=== PATIENT | female | born 1950 | race Caucasian/White ===

== ENCOUNTER → 2016-03-26 | Outpatient (CLI) | payer OTHER ==
--- NOTE | 2016-03-26 11:32 | MA ---
Screening Digital Mammogram With Tomosynthesis Clinical Indications: Routine screening. Technique: Standard digital cephalocaudal and tomosynthesis mediolateral oblique projections are obt ained. An additional digital cc view is performed of the right breast. The digital images were proces sed by the [employer] computer aided detection system. Comparison: July 2013, June 2012 and June 2011 Breast density: B; There are scattered fibroglandular densities. Findings: CAD was reviewed. Identified only on tomosynthesis (47/83 in the upper slightly inner left breast is a small nodule with marginal architectural distortion. The remainder of the left and right breast are stable and negative Impression: Small spiculated nodule upper left breast. Recommendation: Ultrasound for further evaluation. BI-RADS 0: Recommend additional imaging upper left breast. [facility] will send a result letter to the patient. Negative mammography should not preclude additional workup of a clinically suspicious finding. The patient's information is entered into a reminder system with a target due date for her next mammo gram.
== END ==
LOC: FIMAGING 10:20
DX: Z12.31 Encounter for screening mammogram for malignant neoplasm of breast (principal)
CPT/HCPCS: G0202

== ENCOUNTER → 2016-04-02 | Outpatient (CLI) | payer OTHER ==
--- NOTE | 2016-04-02 14:49 | US ---
Left Breast Ultrasound History: Nodule upper left breast Comparison: Screening mammogram March 26, 2016 Findings: There are scattered small simple cysts in the upper breast, the largest measures approximat martha 5 mm and is 7 cm from the nipple . Impression: The mammographic density is consistent with a small, probably benign simple cyst. Recommendation: Six-month follow-up left breast diagnostic mammogram (with tomosynthesis) to ensure s tability of what likely correlates with a simple cyst on sonography. BI-RADS 3. Probably benign. Results and recommendation communicated to the patient at the time of the examination.
== END ==
LOC: FIMAGING 14:13
PROVIDERS: ATTEND Internal Medicine
DX: R92.2 Inconclusive mammogram (principal)

== ENCOUNTER → 2016-05-12 | Outpatient (CLI) | payer OTHER | LOC: FIMAGING 10:33 | PROVIDERS: ATTEND Internal Medicine | DX: Z13.820 Encounter for screening for osteoporosis (principal); Z78.0 Asymptomatic menopausal state; Z82.62 Family history of osteoporosis ==

== ENCOUNTER → 2016-10-19 | Outpatient (CLI) | payer OTHER | LOC: FIMAGING 09:30 | PROVIDERS: ATTEND Internal Medicine | DX: Z13.29 Encounter for screening for other suspected endocrine disorder (principal); N60.02 Solitary cyst of left breast | CPT/HCPCS: G0206 ==

== ENCOUNTER 2017-01-25 11:09 | Inpatient (IN) | payer OTHER ==
--- NOTE | 2017-01-25 11:28 | CPEKG ---
Heart Rate: 93 RR Interval: 645 P-R Interval: 144 QRSD Interval: 88 QT Interval: 344 QTC Interval: 428 P Corning: 28 QRS Corning: 64 T Wave Corning: 24 EKG Severity - NORMAL ECG - EKG Impression: SINUS RHYTHM Electronically Signed By: Jodi Mistry 25-Jan-2017 15:33:27
[2017-01-25] MEDS ORDERED: ASPIRIN 81 MG CHEWABLE TAB PO ONE (11:29)
[2017-01-25 11:38] LABS: % IMMATURE GRANULYOCYTES 0.2 % (0.0-1.1); ABSOLUTE IMMATURE GRANULOCYTES 0.02 10^3/uL (0.00-0.10); ADD DIFF? NO; ADD MORPH? NO; ADD SCAN? NO; ATYPICAL LYMPHOCYTE FLAG 0 (0-99); FRAGMENT RBC FLAG 0 (0-99); HEMATOCRIT 43.9 % (38.0-47.0); HEMOGLOBIN 14.9 g/dL (12.6-16.3); LEFT SHIFT FLG 0 (0-99); LIPEMIA HEMOLYSIS FLAG 90 (0-99); MEAN CELL HEMOGLOBIN 31.4 pg (27.9-34.1); MEAN CELL HEMOGLOBIN CONCENTR. 33.9 g/dL (32.4-36.7); MEAN CELL VOLUME 92.6 fL (81.5-99.8); MEAN PLATELET VOLUME 9.1 fL (8.7-11.7); PLATELET CLUMPS FLAG 0 (0-99); PLATELET COUNT 201 10^3/uL (150-400); RED BLOOD CELL COUNT 4.74 10^6/uL (4.18-5.33); RED CELL DISTRIBUTION WIDTH 14.3 % (11.5-15.2)
[2017-01-25 11:49] LABS: INR 0.96 (0.83-1.16); PROTIME(PATIENT) 12.7 SEC (12.0-15.0)
[2017-01-25 11:53] LABS: ANION GAP 12 mEq/L (8-16); CALCIUM 9.6 mg/dL (8.5-10.4); CARBON DIOXIDE 27 mEq/l (22-31); CHLORIDE 100 mEq/L (97-110); CREATININE 0.8 mg/dL (0.6-1.0); GLOMERULAR FILTRATION RATE > 60; GLUCOSE 92 mg/dL (70-100); POTASSIUM 3.8 mEq/L (3.5-5.2); SODIUM 139 mEq/L (134-144)
[2017-01-25 11:57] LABS: APTT 20.5 SEC (23.0-38.0)
[2017-01-25 12:04] LABS: CREATINE KINASE-MB FRACTION 0.41 ng/mL (0.00-3.19); TROPONIN I < 0.012 ng/mL (0.000-0.034)
[2017-01-25] MEDS ORDERED: IOPAMIDOL (ISOVUE 370) 100 ML BTL IV ONE (14:04)
--- NOTE | 2017-01-25 14:11 | EDPHY ---
H & P Time Seen by Provider: 01/25/17 11:29 HPI/ROS: HPI Chest pain, shortness of breath. 66-year-old female by private vehicle from her primary care physician's office at [facility]. She complains of chest pain with associated shortness of breath since yesterday. Pain described as left-sided lower to mid chest pain, worse with taking a deep breath and yawning. Describes it as sharp and aching. Reports it has been constant at least a low level since yesterday. No prior history of coronary artery disease. ROS: Constitutional: No fever, no chills. No weakness. Eyes: No discharge. No changes in vision. ENT: No sore throat. No nasal congestion or rhinorrhea. Respiratory: No cough. As above. Cardiac: As above, no palpitations. Gastrointestinal: No abdominal pain, no vomiting, no diarrhea. Genitourinary: No hematuria. No dysuria or increased frequency with urination. Musculoskeletal: No back pain. No neck pain. No myalgias or arthralgias. Skin: No rashes. Neurological: No headache. No focal weakness or altered sensation. Past medical history: Hip replacement, laminectomy, hypertension. Social history: Nonsmoker. No alcohol. Here by herself. Physical Exam: General Appearance: Alert, no distress. This patient is responding to questions appropriately and in full sentences. This patient appears well- hydrated and well-nourished. Eyes: Pupils equal and round no pallor or injection. No lid edema, erythema or injection. Respiratory: There are no retractions, lungs are clear to auscultation with good air movement bilaterally. Cardiovascular: Regular rate and rhythm. No murmur. Chest wall is nontender to AP and lateral palpation. Gastrointestinal: Abdomen is soft and nontender, no masses, bowel sounds normal. No focal tenderness at McBurney's point. No Mccoy sign. Neurological: Motor sensory function is grossly intact. Cranial nerves are normal. Gait is normal. Skin: Warm and dry, no rashes. Musculoskeletal: Neck is supple and nontender. Extremities are symmetrical. All joints range without pain or impingement. Psychiatric: No agitation. No depression. Database: EKG: EKG time is 11:26 a.m.; EKG shows a narrow complex normal sinus rhythm with a ventricular rate of 93. The NE, QRS, QT intervals are within normal limits. There are no ST-T wave changes indicative of ischemic or injury pattern. No evidence of right heart strain. Interpreted by me. Imaging: Chest x-ray AP portable; the cardiac mediastinal silhouette is unremarkable. Left base atelectasis versus early pneumonia. No pneumothorax. No other acute cardiopulmonary disease process noted. Interpreted by me. CT angiogram of the chest: Significant for left lower lobe pulmonary embolism. There is a small associated pleural effusion and a small associated consolidation, probable infarction. Results discussed with staff radiologist. Procedures: Emergency department course: IV placed. She was placed on a surveillance system monitor. Vital signs reviewed. She was given 324 mg of chewed aspirin. 2:10 p.m., patient re-evaluated. Resting comfortably at this time. Results of her chest x-ray and blood test discussed. Possibility of pneumonia discussed as well as PE. She consents to CT angiogram of the chest. 2:30 p.m., re-evaluated patient. Discussed diagnosis of pulmonary embolism as seen on CT angiogram of her chest. She will be started on Lovenox in the emergency department for this. I discussed plan for admission. All of her questions were answered. 2:45 p.m., spoke with hospitalist, Dr. Puneet Renee. He accepts the patient for admission. He agrees with above management. Patient admitted to the hospitalist service in stable condition. Differential Diagnosis: The differential diagnosis on this patient includes but is not limited to pneumonia, pulmonary embolism. Acute coronary syndrome, pneumothorax, pericarditis, myocarditis unlikely. This represents a partial list of diagnoses considered. These considerations are based on history, physical exam , past history, reassessment and diagnostic testing. Smoking Status: Never smoked Constitutional: Initial Vital Signs Temperature (C) 36.5 C 01/25/17 11:14 Heart Rate 99 01/25/17 11:14 Respiratory Rate 16 01/25/17 11:14 Blood Pressure 129/87 H 01/25/17 11:14 O2 Sat (%) 95 01/25/17 11:14 O2 Delivery Mode Room Air Allergies/Adverse Reactions: No Known Allergies Allergy (Unverified 07/17/11 16:03) Home Medications: Medication Instructions Recorded Cholecalciferol Vit D3 [Vitamin D3 5,000 units PO DAILY 01/25/17 (*)] Lisinopril [Lisinopril] 10 mg PO DAILY 01/25/17 Multivitamins [Multivitamin (*)] 1 each PO DAILY 01/25/17 [place]-3 Fatty Acids/Fish Oil 1 each PO DAILY 01/25/17 [[place] 3 Fish Oil Softgel] Triamterene/Hydrochlorothiazid 1 each PO DAILY 01/25/17 [Triamterene-Hctz 75-50 mg Tab] Medical Decision Making - Data Points Laboratory Results: Laboratory Results 01/25/17 11:35 01/25/17 11:35 Medications Given: Acetaminophen (Tylenol) 650 mg PO Q4HRS PRN PRN Reason: Pain, Mild/Fever, Can Take PO Stop: 07/24/17 15:37 Last Admin: 01/26/17 08:01 Dose: 650 mg Cholecalciferol (Vitamin D) 5,000 units PO DAILY [facility] Stop: 07/25/17 08:59 Last Admin: 01/26/17 07:55 Dose: 2,000 units Enoxaparin Sodium (Lovenox) 100 mg SC BID@0400,1600 [facility] Stop: 07/25/17 03:59 Last Admin: 01/26/17 04:30 Dose: 100 mg Lisinopril (Zestril) 10 mg PO DAILY [facility] Stop: 07/25/17 08:59 Last Admin: 01/26/17 07:57 Dose: 10 mg Oxycodone HCl (Oxycodone Ir) 5 - 10 mg PO Q3HRS PRN PRN Reason: Pain, Severe Able to Take PO Stop: 02/04/17 15:37 Last Admin: 01/26/17 04:25 Dose: 5 mg Triamterene/HCTZ (Maxzide 75-50 Mg Tab) 1 each PO DAILY [facility] Stop: 07/25/17 08:59 Last Admin: 01/26/17 07:57 Dose: 1 each Discontinued Medications Aspirin (Aspirin) 324 mg PO EDNOW ONE Stop: 01/25/17 11:30 Last Admin: 01/25/17 11:40 Dose: 324 mg Enoxaparin Sodium (Lovenox) 100 mg SC EDNOW ONE Stop: 01/25/17 15:04 Last Admin: 01/25/17 15:47 Dose: 100 mg Departure - Departure Disposition: [facility] Acute Clinical Impression: Chest pain, Dyspnea, Pulmonary embolism
[2017-01-25] MEDS ORDERED: ENOXAPARIN 100 MG/ML SYR SC ONE (15:03)
[2017-01-25] MEDS ORDERED: ONDANSETRON DISINTEGRATING 4 MG TAB PO PRN (15:38)
[2017-01-25] MEDS ORDERED: ONDANSETRON 4 MG/2 ML VIAL IVP PRN (15:38)
--- NOTE | 2017-01-25 16:35 | GHP ---
[f rep st] HISTORY AND PHYSICAL DATE OF ADMISSION: 01/25/2017 CHIEF COMPLAINT: Chest pain and shortness of breath. HISTORY OF PRESENT ILLNESS: This is a 66-year-old female, who woke up yesterday feeling as though tasneem marquez had indigestion. She describes this as pain that starts in her substernal, radiates to the left si de. It is also very sharp, pleuritic in the left lower part of her chest, the lower left breast. Tasneem marquez has no family history of clots. She has never had a blood clot herself. She has had no recent corrie geries. She did travel to [place] over [facility] by car, about [address] She go t back on Wednesday. She tells me she is up-to-date on her colon cancer and breast cancer screening. S he was seen by her nurse practitioner in her PCP's office today, and thus sent into the Emergency Dep artment from there. PAST MEDICAL/SURGICAL HISTORY: 1. Hyperlipidemia. 2. Hypertension. 3. Appendectomy. 4. Myomectomy. 5. Hip replacement. MEDICATIONS: Please see medication reconciliation. ALLERGIES: No known drug allergies. FAMILY HISTORY: No clots. SOCIAL HISTORY: She occasionally drinks. She quit smoking 41 years ago. Today is her 41st anniversary. REVIEW OF SYSTEMS: A 10-point review of systems is conducted and is negative, except per HPI. PHYSICAL EXAM: VITAL SIGNS: Blood pressure 145/77, heart rate 98, respiration rate 22, saturating 9 2% on room air, temperature 36.5. GENERAL: The patient is a very pleasant female who resting comfor tably, in no acute distress. HEENT: Shows to be normocephalic, atraumatic. CARDIOVASCULAR: Regula r rate and rhythm. No murmurs, rubs or gallops. 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 ABDOMEN: Nontender, nondistended. SKIN: Rash. : No Finnye. NEUROLOGIC: Shows her to b e alert and oriented x3. She is moving all extremities. PSYCHIATRIC: Normal mood and affect. LABS: Basic metabolic panel is normal. Troponin is negative. D-dimer is 0.55. White count is norm al. DATA: 1. CT angiogram shows left lower lobe pulmonary embolus. 2. EKG shows S1Q3T3. Otherwise, nonischemic EKG. IMPRESSION AND PLAN: This is a 66-year-old female who presents with pulmonary embolus. 1. Acute pulmonary embolus. Risk factor is recent travel: She is hemodynamically stable. We will start her on Lovenox tonight. She can likely be transitioned to a direct oral anticoagulant tomorrow . I did not discuss this with her, however. 2. Hypertension: We will continue her medications. 3. Hyperlipidemia: Statin. 4. Question of fever and infiltrate on x-ray: Procalcitonin is pending. We will not empirically st art antibiotics, as I think her symptom complex is best explained by pulmonary embolus. /[id number]/MODL
[2017-01-25] MEDS: ACETAMINOPHEN 325 MG TAB PO PRN (17:11)
[2017-01-26] MEDS: oxyCODONE IR 5 MG TAB PO PRN ×2 (04:25→22:12)
[2017-01-26] MEDS: ENOXAPARIN 100 MG/ML SYR SC SCH ×2 (04:30→17:26)
[2017-01-26] MEDS: CHOLECALCIFEROL VIT D3 1,000 UNITS TAB PO SCH (07:55)
[2017-01-26] MEDS: TRIAMTERENE/HCTZ 75/50 1 EACH TAB PO SCH (07:57)
[2017-01-26] MEDS: LISINOPRIL 10 MG TAB PO SCH (07:57)
[2017-01-26] MEDS: ACETAMINOPHEN 325 MG TAB PO PRN (08:01)
--- NOTE | 2017-01-26 11:01 | HOSPPROG ---
Hospitalist Progress Note Assessment/Plan: 66 yo F w acute PE PE: 3 [address] hard to invoke as a true precipitant continue LMWH tachycardia noted R heart strain: seen on ekg check echo tachycardi: 2/2 PE euvolemic hyeprcoaguability: outpt heme referral dispo: changeto inpt Subjective: ekg w R heart strain (interp by me). CT PE w LLL PE (interp by me) Objective: Vital Signs Temp Pulse Resp BP Pulse Ox 37.1 C 97 12 128/77 H 92 01/26/17 07:26 01/26/17 07:26 01/26/17 07:26 01/26/17 07:26 01/26/17 08:51 01/25/17 01/26/17 01/27/17 05:59 05:59 05:59 Intake Total 200 Balance 200 PT 12.7 SEC (12.0-15.0) 01/25/17 11:35 INR 0.96 (0.83-1.16) 01/25/17 11:35 - Physical Exam Constitutional: no apparent distress, appears nourished Eyes: PERRL, anicteric sclera Ears, Nose, Mouth, Throat: moist mucous membranes, hearing normal Cardiovascular: regular rate and rhythym, no murmur, rub, or gallop Respiratory: no respiratory distress, no rales or rhonchi Gastrointestinal: normoactive bowel sounds, soft, non-tender abdomen Genitourinary: no bladder fullness, No miller in urethra Skin: warm, normal color Musculoskeletal: full muscle strength, no muscle tenderness Neurologic: AAOx3, sensation intact bilaterally Psychiatric: interacting appropriately ICD10 Worksheet Patient Problems: Problems Problem Status Onset Chest pain Acute Dyspnea Acute Pulmonary embolism Acute Osteoarthritis of hip Active
--- NOTE | 2017-01-26 12:52 | PDMN ---
Medical Necessity Medical necessity: M290 PE- PE noted with dyspnea, cardiac concerns - R heart strain seen on EKG, tachycardia noted- further cardiac monitoring needed > 2 midnights.
--- NOTE | 2017-01-26 14:27 | ASMTCMCOM ---
CM Note CM Note Notes: 01/26/2017 Case Management Note Reviewed chart, spoke w/RN. No case management d/c needs identified d/t pt age, relationship status and activity levels prior to admission. There are no OT or PT evals ordered. Case Management d/c poc: Home independent when medically stable with follow up as directed. Case Management available if needs change. Date Signed: 01/26/2017 02:26 PM Electronically Signed By:Paula Gloria RN
--- NOTE | 2017-01-26 15:46 | ECHO ---
[email or web address] [address] [address] Main: [phone] Fax: Transthoracic Echocardiogram Name: VIVIEN DUCKWORTH MR#: [id number] Study Date: 01/26/2017 Study Time: 02:41 PM Date of : 1950 Age: 66 year(s) Height: 167.6 cm (66 in.) Weight: 98.88 kg (218 lb.) BSA: 2.07 m2 Gender: Female Examination: Echo Indication: PE with right heart strain on EKG Image Quality: Contrast: Requested by: Rahul Bautista BP: 142 mmHg/76 mmHg Heart Rate: Rhythm: Indication: PE with right heart strain on EKG Procedure Staff Catering Coordinator: Priya Cross Physician: Viktor yN Requesting Provider: Conclusions: Normal study Measurements: Chambers Valvular Assessment AV/MV Valvular Assessment TV/PV Normal Normal Normal Name Value Range Name Value Range Name Value Range Ao Ping (MM): 2.9 cm (2.2 cm-3.7 AV meanP mmHg ( - ) cm) MV E Vmax: 0.71 m/s ( - ) IVSd (2D): 0.8 cm (0.6 cm-1.1 MV A Vmax: 0.68 m/s ( - ) cm) MV E/A: 1.04 ( - ) LVDd (2D): 5.4 cm (3.9 cm-5.3 cm) LVDs (2D): 3.4 cm (2.1 cm-4 cm) LVPWd (2D): 0.8 cm ( - ) LVEF (2D): 67 (>=54 %) EF Range: 70-75 % Continued Measurements: Chambers Valvular Assessment AV/MV Name Value Name Value LADs: 3.3 cm MV E/E' Septal: 9.80 MV E/E' Lateral: 8.40 Findings: Left Ventricle: Normal size left ventricle. Global hypercontractility of the left ventricle. The ejection fraction is estimated to be 70-75 %. Patient: VIVIEN DUCKWORTH Study Date: 01/26/2017 Page 1 of 2 02:41 PM Right Ventricle: Normal size right ventricle. Left Atrium: The left atrium is normal in size. Right Atrium: The right atrium is borderline dilated. No increased pressures on the right side.. Mitral Valve: The mitral valve is normal in appearance. Mild mitral valve regurgitation is present. Aortic Valve: AV opens well.. Tricuspid Valve: The tricuspid valve appears normal. Pulmonic Valve: Pulmonary valve not well visualized. Pericardium: Trivial anterior pericardial effusion. (No Signature Object) Patient: VIVIEN DUCKWORTH Study Date: 01/26/2017 Page 2 of 2 02:41 PM [id number]
[2017-01-27 05:57] VITALS: O2SAT 90
[2017-01-27] MEDS: ENOXAPARIN 100 MG/ML SYR SC SCH (06:00)
[2017-01-27] MEDS: LISINOPRIL 10 MG TAB PO SCH (08:05)
[2017-01-27] MEDS: TRIAMTERENE/HCTZ 75/50 1 EACH TAB PO SCH (08:09)
[2017-01-27] MEDS: CHOLECALCIFEROL VIT D3 1,000 UNITS TAB PO SCH (08:09)
[2017-01-27 08:10] VITALS: BP 137/74
[2017-01-27 09:34] VITALS: PULSE 94; RESP 19; TEMP 98.8
--- NOTE | 2017-01-27 09:58 | HOSPPROG ---
Hospitalist Progress Note Assessment/Plan: 66 yo F w acute PE PE: [address] hard to invoke as a true precipitant continue LMWH tachycardia noted R heart strain: seen on ekg check echo tachycardi: 2/2 PE euvolemic hyeprcoaguability: outpt heme referral dispo: home today > 30 minutes on dc Subjective: echo w no R heart strain Objective: Vital Signs Temp Pulse Resp BP Pulse Ox 37.1 C 94 19 137/74 H 90 L 01/27/17 08:00 01/27/17 08:00 01/27/17 08:00 01/27/17 08:09 01/27/17 08:00 01/26/17 01/27/17 01/28/17 05:59 05:59 05:59 Intake Total 600 Balance 600 PT 12.7 SEC (12.0-15.0) 01/25/17 11:35 INR 0.96 (0.83-1.16) 01/25/17 11:35 - Physical Exam Constitutional: no apparent distress, appears nourished Eyes: PERRL, anicteric sclera Ears, Nose, Mouth, Throat: moist mucous membranes, hearing normal Cardiovascular: regular rate and rhythym, no murmur, rub, or gallop, systolic murmur Respiratory: no respiratory distress, no rales or rhonchi Gastrointestinal: normoactive bowel sounds, soft, non-tender abdomen Genitourinary: no bladder fullness, No miller in urethra Skin: warm, normal color Musculoskeletal: full muscle strength, no muscle tenderness Neurologic: AAOx3 ICD10 Worksheet Patient Problems: Problems Problem Status Onset Chest pain Acute Dyspnea Acute Pulmonary embolism Acute Osteoarthritis of hip Active
--- NOTE | 2017-01-27 14:19 | ASDISCHSUM ---
Discharge Information Plan Status:Home with No Needs Medically Cleared to Leave:01/26/2017 Discharge Date:01/27/2017 01:58 PM CM D/C Disposition:Home, Routine, Self-Care ADT D/C Disposition:Home, Routine, Self-Care Projected Discharge Date:01/27/2017 01:58 PM Transportation at D/C:Family Discharge Delay Reason: Follow-Up Date:01/27/2017 01:58 PM Discharge Slot: Final Diagnosis: Placement Information Patient Contact Information Contact Name:PATTI Relationship: Address:[address] [place] [address] City:[place] Alternate Phone: State/Zip Code:[place] [address] Email: Financial Information Financial Class:Medicare Advantage Plans Primary Plan Desc:[facility] [employer] PL[employer] Primary Plan Number:[id number] Secondary Plan Desc: Secondary Plan Number: Assessment Information [facility] CM Progress Note CM Note CM Note Notes: 01/26/2017 Case Management Note Reviewed chart, spoke w/RN. No case management d/c needs identified d/t pt age, relationship status and activity levels prior to admission. There are no OT or PT evals ordered. Case Management d/c poc: Home independent when medically stable with follow up as directed. Case Management available if needs change. Date Signed: 01/26/2017 02:26 PM Electronically Signed By:Paula Gloria RN LACE LACE Length of stay for Answers: 1 day current admission Acuity / Level of Care Answers: Was the patient admitted to hospital via the emergency department? Yes: Comorbidities - select Answers: Cerebrovascular disease all that apply Emergency dept visits in Answers: 0 last 6 months Score: 5 Date Signed: 01/27/2017 10:02 AM Electronically Signed By:Paula Gloria RN Intervention Information Intervention Type:*DAYDAY-Signed Date of Service:01/26/2017 01:14 PM Patient Type:Inpatient Staff Member:Tanisha Diaz Hours: Discipline: Severity: Comment:
--- NOTE | 2017-01-27 19:36 | GDS ---
[f rep st] DISCHARGE SUMMARY DISCHARGE DIAGNOSES: 1. Unprovoked pulmonary embolism. 2. Hypertension. 3. Small pleural effusion with pleurisy. Please see admission history and physical by Dr. Rex Renee. HOSPITAL COURSE: The patient presented with chest pain. Her only real risk factor was a recent 3 [address] to and from [place], which is not really long enough to implicate as the cause of a pulmonary embolism. She had no isolated lower extremity edema to suggest concomitant DVT. She had right heart strain on EKG, but was not hypotensive. She had echocardiogram with intact RV function and no RV strain. She received greater than 48 hours of subcutaneous Lovenox at 1 mg/kg twice daily. She is transitioned to Eliquis 10 twice daily for 7 days followed by 5 b.i.d. She is given the prescription card. /[id number]/MODL MTDD
== END 2017-01-27 13:58 | disposition home or self-care (01) | DRG 176 ==
LOC: F2W 15:54 → OBSVTOIN 01-26 11:01
PROVIDERS: ADMIT Student in an Organized Health Care Education/Training Program; ATTEND Student in an Organized Health Care Education/Training Program
DX: I26.99 Other pulmonary embolism without acute cor pulmonale (principal); I10 Essential (primary) hypertension; J90 Pleural effusion, not elsewhere classified; E78.5 Hyperlipidemia, unspecified; Z96.649 Presence of unspecified artificial hip joint
CPT/HCPCS: G0378; J1650; Q9967

== ENCOUNTER → 2017-04-05 | Outpatient (CLI) | payer OTHER | LOC: FIMAGING 09:26 | PROVIDERS: ATTEND Internal Medicine | DX: Z12.31 Encounter for screening mammogram for malignant neoplasm of breast (principal) ==

== ENCOUNTER → 2018-04-06 | Outpatient (CLI) | payer OTHER | LOC: FIMAGING 08:55 | PROVIDERS: ATTEND Internal Medicine | DX: Z12.31 Encounter for screening mammogram for malignant neoplasm of breast (principal) ==

== ENCOUNTER → 2018-07-05 | Outpatient (CLI) | payer OTHER ==
[~2018-07-05] MED LIST: IOPAMIDOL (ISOVUE-300) 100 ML BTL ONE
== END ==
LOC: FIMAGING 15:00
PROVIDERS: ATTEND Internal Medicine
DX: K63.89 Other specified diseases of intestine (principal); J90 Pleural effusion, not elsewhere classified; Z86.711 Personal history of pulmonary embolism; Z79.01 Long term (current) use of anticoagulants
CPT/HCPCS: 74177; Q9967; 82565-PO